=== PATIENT | male | born 1970 | race Caucasian/White ===

== ENCOUNTER → 2016-12-01 | Outpatient (CLI) | payer OTHER ==
[~2016-12-01] MED LIST: HYDR1TAB12 PO; IBUP200T6 PO; IOHEXOL 300 MG/ML 50 ML VIAL. IT ONE; LIDOCAINE 1% Multi-Dose 20 ML VIAL. ID ONE; MORP15TA PO
--- NOTE | 2016-12-01 12:53 | KCIC ---
PROCEDURE Fluoroscopic guided lumbar puncture for cervical myelography; cervical spine CT myelogram. HISTORY Neck pain and upper extremity radiculopathy. TECHNIQUE The risks of the procedure were discussed with the patient and written and verbal consent was obtained. A time-out was performed. Fluoroscopic imaging of the lumbar spine was performed and a site overlying L4-L5 was selected. The skin overlying this region was sterilely prepped, draped and infiltrated with 1 percent lidocaine. A 25 gauge needle was then advanced into the thecal sac and appropriate needle tip position was confirmed with spontaneous yield of cerebral spinal fluid within the needle hub. Subsequently, 10 cc Omnipaque 300 intrathecal contrast was injected into the thecal sac. The needle was then removed and a sterile bandage was placed at the needle entry site. The contrast column was then advanced to the cervical levels and 5 fluoroscopic images were obtained in multiple obliquities. The patient was then transferred to the CT suite for the post injection CT portion of the exam. The total fluoroscopy time was 1 minutes and 16 seconds. The patient tolerated the procedure without difficulty and was discharged in stable condition. One or more of the following individualized dose reduction techniques were utilized for this examination: 1. Automated exposure control; 2. Adjustment of the mA and/or kV according to patient size; 3. Use of iterative reconstruction technique. COMPARISON None. FINDINGS There is slight reversal of cervical lordosis. There is minimal anterolisthesis of C2 on C3, within physiologic limits. There is degenerative endplate remodeling with disc space narrowing and Schmorl's node formation predominately at C4-C5. There is a lucent lesion within C6, likely a hemangioma. No suspicious osseous lesion is seen. The skullbase and posterior fossa are unremarkable. At C2-C3, there is no stenosis. At C3-C4, there is a left paracentral to foraminal disc protrusion and osteophyte complex superimposed on a disc bulge and endplate remodeling. There is uncovertebral arthropathy. There is mild to moderate left foraminal stenosis. There is deviation of the left ventral nerve ramus without significant central canal stenosis. At C4-C5, there is a diffuse disc bulge with endplate osteophytosis. There is uncovertebral arthropathy. There is moderate to severe bilateral foraminal stenosis. There is deviation of the bilateral ventral nerve rami. At C5-C6 and C6-C7, there is no stenosis. IMPRESSION 1. Degenerative changes at C4-C5, resulting in moderate to severe bilateral foraminal stenosis and deviation of the bilateral ventral nerve rami. 2. Degenerative changes at C3-C4, resulting in mild to moderate left foraminal stenosis and deviation of the left ventral nerve ramus. 3. No additional significant foraminal or central canal stenosis. Electronically signed by: Katlin Vo (Dec 01, 2016 12:51:51)
== END | disposition home or self-care (01) ==
LOC: KCIC 10:51
PROVIDERS: ATTEND Neurological Surgery
DX: M54.12 Radiculopathy, cervical region (principal); I10 Essential (primary) hypertension
CPT/HCPCS: 72126; 72240; Q9967